=== PATIENT | female | born 1945 | race Caucasian/White ===

== ENCOUNTER 2018-08-01 08:00 | Emergency (ER) | payer MEDICARE ==
[~2018-08-01] VITALS: Ht 147.3 cm; Wt 52.7 kg
[2018-08-01] MEDS ORDERED: TRAM50TA2 PO (08:58)
[2018-08-01] MEDS ORDERED: CELE200C PO (08:58)
[2018-08-01] MEDS ORDERED: traMADol 50MG tablet PO ONE (09:10)
[2018-08-01] MEDS ORDERED: ketorolac tromethamine 15mg/ml inj. IM ONE (09:10)
[2018-08-01 09:35] VITALS: BP 153/86
== END 2018-08-01 09:36 | disposition home or self-care (01) ==
LOC: ER 08:00
DX: R10.2 Pelvic and perineal pain (principal); M81.0 Age-related osteoporosis without current pathological fracture; M79.652 Pain in left thigh; Z88.5 Allergy status to narcotic agent; Z91.011 Allergy to milk products; Z79.899 Other long term (current) drug therapy
CPT/HCPCS: 72192; 96372; 99284; J1885